=== PATIENT | female | born 1995 | race African-American/Black ===

== ENCOUNTER 2018-04-22 16:09 | Emergency (ER) | payer SELFPAY | END 2018-04-22 16:40 | disposition left against medical advice (07) | LOC: NAV ERS 16:09 | DX: R53.1 Weakness (principal); F41.9 Anxiety disorder, unspecified; F17.210 Nicotine dependence, cigarettes, uncomplicated | CPT/HCPCS: 99285 ==

== ENCOUNTER 2018-09-21 00:04 | Emergency (ER) | payer OTHER, SELFPAY ==
[2018-09-21 00:39] LABS: Bilirubin Negative (Negative); Blood, Urine Negative (Negative); Clarity Clear (Clear); Glucose, Urine (Dipstick) Negative (Negative); Leukocyte Negative (Negative); Nitrite Negative (Negative); Protein, Urine (Dipstick) 30 mg/dL (Neg-Trace); pH, Urine 7.5 (5.0-9.0)
[2018-09-21 00:42] LABS: Bacteria/HPF None Seen HPF (None Seen); RBC/HPF None Seen HPF (0-3); Squamous Epithelial 0-3 HPF (0-3); WBC/HPF None Seen HPF (0-3)
[2018-09-21 00:43] LABS: Pregnancy Test - Urine (BHCG) Negative (Negative); Pregu Control Background? CLEAR/WHITE (CLR/WHITE); Pregu Control Bar Appear? YES (CONTROL BAR)
== END 2018-09-21 00:55 | disposition home or self-care (01) ==
LOC: NAV ERS 00:04
DX: F41.9 Anxiety disorder, unspecified (principal); F31.9 Bipolar disorder, unspecified; F17.210 Nicotine dependence, cigarettes, uncomplicated; Z79.899 Other long term (current) drug therapy
CPT/HCPCS: 81003; 81015; 81025; 93005

== ENCOUNTER 2019-01-24 19:33 | Emergency (ER) | payer OTHER ==
--- NOTE | 2019-01-24 21:01 | RAD ---
LEFT KNEE FOUR VIEWS: 01/24/19 HISTORY: Fall. Injury. Left knee pain. FINDINGS/IMPRESSION: No fracture or dislocation is seen. No joint effusion is identified. POS: [facility]
== END 2019-01-24 20:40 | disposition home or self-care (01) ==
LOC: NAV ERS 19:33
DX: S80.212A Abrasion, left knee, initial encounter (principal); F31.9 Bipolar disorder, unspecified; Z79.899 Other long term (current) drug therapy; W10.8XXA Fall (on) (from) other stairs and steps, initial encounter

== ENCOUNTER 2019-01-26 12:11 | Emergency (ER) | payer OTHER | END 2019-01-26 12:45 | disposition home or self-care (01) | LOC: NAV ERS 12:11 | DX: M25.562 Pain in left knee (principal); F31.9 Bipolar disorder, unspecified; Z79.899 Other long term (current) drug therapy | CPT/HCPCS: 99281 ==

== ENCOUNTER 2019-03-03 09:04 | Emergency (ER) | payer OTHER ==
[2019-03-03] MEDS ORDERED: Ondansetron ODT 4 MG TAB ONE (09:25)
== END 2019-03-03 09:46 | disposition home or self-care (01) ==
LOC: NAV ERS 09:04
DX: K52.9 Noninfective gastroenteritis and colitis, unspecified (principal); F31.9 Bipolar disorder, unspecified; F17.210 Nicotine dependence, cigarettes, uncomplicated; Z79.899 Other long term (current) drug therapy
CPT/HCPCS: 99283; Q0162

== ENCOUNTER 2019-03-13 18:08 | Emergency (ER) | payer OTHER, SELFPAY ==
[2019-03-13] MEDS ORDERED: Ibuprofen 800 MG TAB ONE (18:32)
[2019-03-13] MEDS ORDERED: Cyclobenzaprine 10 MG TAB ONE (18:32)
== END 2019-03-13 18:48 | disposition home or self-care (01) ==
LOC: NAV ERS 18:08
DX: S13.9XXA Sprain of joints and ligaments of unspecified parts of neck, initial encounter (principal); F31.9 Bipolar disorder, unspecified; F17.210 Nicotine dependence, cigarettes, uncomplicated; V43.62XA Car passenger injured in collision with other type car in traffic accident, initial encounter
CPT/HCPCS: 99283

== ENCOUNTER 2019-04-04 16:43 | Emergency (ER) | payer SELFPAY ==
[2019-04-04 17:05] LABS: Bilirubin Negative (Negative); Blood, Urine Negative (Negative); Glucose, Urine (Dipstick) Negative (Negative); Leukocyte Negative (Negative); Nitrite Negative (Negative); Protein, Urine (Dipstick) Negative (Neg-Trace)
[2019-04-04 17:06] LABS: Clarity SL HAZY (Clear)
[2019-04-04 17:08] LABS: Pregnancy Test - Urine (BHCG) POSITIVE (Negative); Pregu Control Background? CLEAR/WHITE (CLR/WHITE); Pregu Control Bar Appear? YES (CONTROL BAR); Specific Gravity 1.025 (1.002-1.036)
== END 2019-04-04 17:28 | disposition home or self-care (01) ==
LOC: NAV ERS 16:43
DX: O99.89 Other specified diseases and conditions complicating pregnancy, childbirth and the puerperium (principal); R30.0 Dysuria; O99.341 Other mental disorders complicating pregnancy, first trimester; F31.9 Bipolar disorder, unspecified; O99.331 Smoking (tobacco) complicating pregnancy, first trimester; F17.210 Nicotine dependence, cigarettes, uncomplicated; Z79.899 Other long term (current) drug therapy; Z3A.10 10 weeks gestation of pregnancy
CPT/HCPCS: 81003; 81025; 87086; 99283

== ENCOUNTER 2019-04-09 02:20 | Emergency (ER) | payer MEDICAID, SELFPAY | END 2019-04-09 02:58 | disposition home or self-care (01) | LOC: NAV ERS 02:20 | DX: O99.89 Other specified diseases and conditions complicating pregnancy, childbirth and the puerperium (principal); M54.5 Low back pain; O99.341 Other mental disorders complicating pregnancy, first trimester; F43.10 Post-traumatic stress disorder, unspecified; F31.9 Bipolar disorder, unspecified; O99.331 Smoking (tobacco) complicating pregnancy, first trimester; F17.210 Nicotine dependence, cigarettes, uncomplicated; Z3A.09 9 weeks gestation of pregnancy; W10.9XXA Fall (on) (from) unspecified stairs and steps, initial encounter | CPT/HCPCS: 99281 ==

== ENCOUNTER 2019-09-15 14:25 | Emergency (ER) | payer OTHER, SELFPAY | END 2019-09-15 15:35 | disposition home or self-care (01) | LOC: NAV ERS 14:25 | DX: O99.89 Other specified diseases and conditions complicating pregnancy, childbirth and the puerperium (principal); M54.5 Low back pain; O99.333 Smoking (tobacco) complicating pregnancy, third trimester; F17.210 Nicotine dependence, cigarettes, uncomplicated; O99.343 Other mental disorders complicating pregnancy, third trimester; F43.10 Post-traumatic stress disorder, unspecified; F31.9 Bipolar disorder, unspecified; Z3A.29 29 weeks gestation of pregnancy; W10.9XXA Fall (on) (from) unspecified stairs and steps, initial encounter | CPT/HCPCS: 99283 ==

== ENCOUNTER 2019-09-29 18:30 | Emergency (ER) | payer OTHER | END 2019-09-29 19:00 | disposition home or self-care (01) | LOC: NAV ERS 18:30 | DX: O99.89 Other specified diseases and conditions complicating pregnancy, childbirth and the puerperium (principal); R19.7 Diarrhea, unspecified; O21.2 Late vomiting of pregnancy; Z3A.30 30 weeks gestation of pregnancy | CPT/HCPCS: 99283 ==

== ENCOUNTER 2020-03-18 08:48 | Emergency (ER) | payer OTHER ==
[2020-03-18 09:18] LABS: Bilirubin Negative (Negative); Blood, Urine Negative (Negative); Clarity Clear (Clear); Glucose, Urine (Dipstick) Negative (Negative); Ketone, Urine Negative (Negative); Nitrite Negative (Negative); Protein, Urine (Dipstick) Negative (Neg-Trace); Specific Gravity, Urine 1.025 (1.005-1.030); pH, Urine 6.5 (5.0-9.0)
[2020-03-18 09:19] LABS: Leukocyte Negative (Negative)
[2020-03-18 09:20] LABS: Pregnancy Test - Urine (BHCG) POSITIVE (Negative); Pregu Control Background? CLEAR/WHITE (CLR/WHITE); Pregu Control Bar Appear? YES (CONTROL BAR); Specific Gravity 1.025 (1.002-1.036)
== END 2020-03-18 09:38 | disposition home or self-care (01) ==
LOC: NAV ERS 08:48
DX: O99.89 Other specified diseases and conditions complicating pregnancy, childbirth and the puerperium (principal); R30.0 Dysuria; R35.0 Frequency of micturition; R31.9 Hematuria, unspecified; O99.341 Other mental disorders complicating pregnancy, first trimester; F31.9 Bipolar disorder, unspecified; Z87.891 Personal history of nicotine dependence; Z79.01 Long term (current) use of anticoagulants
CPT/HCPCS: 81003; 81025; 87077; 87086; 87186; 99283

== ENCOUNTER 2020-03-23 15:08 | Emergency (ER) | payer OTHER | END 2020-03-23 16:30 | disposition home or self-care (01) | LOC: NAV ERS 15:08 | DX: F43.0 Acute stress reaction (principal); F31.9 Bipolar disorder, unspecified; F41.9 Anxiety disorder, unspecified; Z87.891 Personal history of nicotine dependence; Z79.899 Other long term (current) drug therapy | CPT/HCPCS: 99283 ==

== ENCOUNTER 2020-05-02 14:24 | Emergency (ER) | payer OTHER | END 2020-05-02 15:00 | disposition home or self-care (01) | LOC: NAV ERS 14:24 | DX: O20.0 Threatened abortion (principal); O99.341 Other mental disorders complicating pregnancy, first trimester; F31.9 Bipolar disorder, unspecified; F41.9 Anxiety disorder, unspecified; Z3A.11 11 weeks gestation of pregnancy; Z87.891 Personal history of nicotine dependence | CPT/HCPCS: 99283 ==

== ENCOUNTER 2020-05-30 18:53 | Emergency (ER) | payer OTHER | END 2020-05-30 19:39 | disposition home or self-care (01) | LOC: NAV ERS 18:53 | DX: O99.891 Other specified diseases and conditions complicating pregnancy (principal); M54.5 Low back pain; O99.342 Other mental disorders complicating pregnancy, second trimester; F41.9 Anxiety disorder, unspecified; F31.9 Bipolar disorder, unspecified; Z3A.16 16 weeks gestation of pregnancy; Z87.891 Personal history of nicotine dependence; Z79.899 Other long term (current) drug therapy | CPT/HCPCS: 99283 ==

== ENCOUNTER 2020-08-08 17:35 | Emergency (ER) | payer OTHER ==
[2020-08-08] MEDS ORDERED: Ondansetron ODT 4 MG TAB ONE (17:50)
[2020-08-08 18:08] LABS: Bilirubin Negative (Negative); Blood, Urine Negative (Negative); Clarity Clear (Clear); Glucose, Urine (Dipstick) Negative (Negative); Ketone, Urine Negative (Negative); Leukocyte Negative (Negative); Nitrite Negative (Negative); Protein, Urine (Dipstick) 30 mg/dL (Neg-Trace)
[2020-08-08 18:14] LABS: pH, Urine Greater/Equal 9.0 (5.0-9.0)
[2020-08-08 18:16] LABS: Bacteria/HPF Rare-Few HPF (None Seen); RBC/HPF None Seen HPF (0-3); Squamous Epithelial 0-3 HPF (0-3); WBC/HPF 0-3 HPF (0-3)
== END 2020-08-08 18:24 | disposition home or self-care (01) ==
LOC: NAV ERS 17:35
DX: O99.891 Other specified diseases and conditions complicating pregnancy (principal); R11.2 Nausea with vomiting, unspecified; Z87.891 Personal history of nicotine dependence
CPT/HCPCS: 81003; 81015; 99284; Q0162

== ENCOUNTER 2020-09-20 11:56 | Emergency (ER) | payer OTHER | END 2020-09-20 12:15 | disposition left against medical advice (07) | LOC: NAV ERS 11:56 | DX: Z53.21 Procedure and treatment not carried out due to patient leaving prior to being seen by health care provider (principal) ==

== ENCOUNTER 2021-04-15 16:01 | Emergency (ER) | payer OTHER ==
[2021-04-15] MEDS ORDERED: Ibuprofen 200 MG TAB ONE (16:41)
[2021-04-15] MEDS ORDERED: Acetaminophen 325 MG TAB ONE (16:41)
== END 2021-04-15 16:45 | disposition home or self-care (01) ==
LOC: NAV ERS 16:01
DX: S39.012A Strain of muscle, fascia and tendon of lower back, initial encounter (principal); X50.0XXA Overexertion from strenuous movement or load, initial encounter
CPT/HCPCS: 99283

== ENCOUNTER 2021-06-24 11:57 | Emergency (ER) | payer OTHER | END 2021-06-24 12:19 | disposition home or self-care (01) | LOC: NAV ERS 11:57 | DX: J06.9 Acute upper respiratory infection, unspecified (principal) | CPT/HCPCS: 99283 ==

== ENCOUNTER 2021-08-24 11:01 | Emergency (ER) | payer OTHER ==
[2021-08-24 11:57] LABS: Bilirubin Negative (Negative); Blood, Urine Negative (Negative); Clarity Clear (Clear); Glucose, Urine (Dipstick) 100 mg/dL (Negative); Ketone, Urine Negative (Negative); Leukocyte Negative (Negative); Nitrite Negative (Negative); Protein, Urine (Dipstick) Trace mg/dL (Neg-Trace); Specific Gravity, Urine 1.025 (1.005-1.030)
[2021-08-24 12:11] LABS: Pregnancy Test - Urine (BHCG) POSITIVE (Negative)
[2021-08-24 12:12] LABS: Pregu Control Background? CLEAR/WHITE (CLR/WHITE); Pregu Control Bar Appear? YES (CONTROL BAR); Specific Gravity 1.025 (1.002-1.036)
== END 2021-08-24 12:27 | disposition home or self-care (01) ==
LOC: NAV ERS 11:01
DX: O26.91 Pregnancy related conditions, unspecified, first trimester (principal); R11.0 Nausea; Z3A.01 Less than 8 weeks gestation of pregnancy; Z79.899 Other long term (current) drug therapy
CPT/HCPCS: 81003; 81025; 99284